=== PATIENT | male | born 1965 | race Hispanic/Latino ===

== ENCOUNTER 2024-01-29 02:13 | Emergency (ER) | payer BC ==
[~2024-01-29] VITALS: Ht 172.7 cm; Wt 106.1 kg
[2024-01-29 02:45] LABS: BASOPHILS # (AUTO) 0.05 K/uL (0.00-0.20); BASOPHILS % (AUTO) 0.6 % (0.0-5.0); EOSINOPHILS # (AUTO) 0.29 K/uL (0.00-0.70); EOSINOPHILS % (AUTO) 3.2 % (0.0-8.0); HEMATOCRIT 44.6 % (42-54); IMMATURE GRANULOCYTE ABSOLUTE 0.03 K/uL (0-1); LYMPHOCYTES # (AUTO) 2.8 K/uL (1.0-4.8); LYMPHOCYTES % (AUTO) 30.5 % (21.0-51.0); MEAN CORPUSCULAR HEMOGLOBIN 28.9 pg (27.0-33.0); MEAN CORPUSCULAR HGB CONC 34.3 g/dL (32.0-36.0); MEAN CORPUSCULAR VOLUME 84.3 fL (79-99); MONOCYTES # (AUTO) 0.7 K/uL (0.1-1.0); MONOCYTES % (AUTO) 7.4 % (3.0-13.0); NEUTROPHILS # (AUTO) 5.2 K/uL (1.8-7.7); PLATELET COUNT (AUTO) 235 K/uL (130-400); RED BLOOD CELL COUNT(AUTO) 5.29 MIL/uL (4.50-6.20); RED CELL DISTRIBUTION WIDTH 13.2 % (11.0-15.5)
[2024-01-29] MEDS: 0.9%NACL 1000ML 1,000 ML IV SCH (02:46)
[2024-01-29] MEDS: ONDANSETRON 4MG INJ IVP ONE (02:46)
[2024-01-29] MEDS: MORPHINE 4 MG SYG IVP ONE ×2 (02:47→07:30)
[2024-01-29 02:52] LABS: APPEARANCE,URINE CLEAR (CLEAR); BILIRUBIN,URINE NEGATIVE (NEGATIVE); COLOR,URINE LIGHT-YELLOW (YELLOW); GLUCOSE, URINE (UA) NEGATIVE (NEGATIVE); KETONES,URINE NEGATIVE (NEGATIVE); LEUKOCYTE ESTERASE ,URINE NEGATIVE Leu/uL (NEGATIVE); NITRATE,URINE NEGATIVE (NEGATIVE); OCCULT BLOOD,URINE LARGE (NEGATIVE); PROTEIN,URINE 70 mg/dL (NEGATIVE); UROBILINOGEN,URINE 0.2 mg/dL (0.2-1.0)
[2024-01-29 02:54] LABS: ADD UA MICROSCOPIC YES; CREATININE 1.1 mg/dL (0.5-1.3); POTASSIUM 3.9 mmol/L (3.5-5.1)
[2024-01-29 02:55] LABS: BACTERIA,URINE FEW /HPF (None Seen); MUCUS,URINE RARE LPF (None Seen); RBC,URINE TNTC /HPF (0-1); SQUAMOUS EPITHELIAL CELL,UR RARE /HPF (0-2)
[2024-01-29 02:59] LABS: ALBUMIN 3.8 g/dL (3.5-5.0); BILIRUBIN,TOTAL 0.4 mg/dL (0.2-1.0); TOTAL PROTEIN, SERUM 8.6 g/dL (6.0-8.3)
[2024-01-29] MEDS: KETOROLAC 30MG VIAL (30MG/ML) IVP ONE (04:23)
[2024-01-29] MEDS: TAMSULOSIN HCL 0.4 MG CAP.ER.24H PO ONE (06:37)
[2024-01-29] MEDS ORDERED: ACET-2079 PO (07:07)
[2024-01-29] MEDS ORDERED: ONDA4TAB10 PO (07:07)
[2024-01-29] MEDS ORDERED: IBUP-2070 PO (07:07)
[2024-01-29] MEDS ORDERED: TAMS-1 PO (07:07)
[2024-01-29 07:37] VITALS: BP 155/95; PULSE 103; RESP 17; O2SAT 97
== END 2024-01-29 07:30 | disposition home or self-care (01) ==
LOC: EDBD 02:13 → EDH 02:13
DX: N13.2 Hydronephrosis with renal and ureteral calculous obstruction (principal); I10 Essential (primary) hypertension; Z98.890 Other specified postprocedural states
CPT/HCPCS: 99284; 74176; 96374; 96375; 80053; 85025; 81001; 36415; 96376; J7030; J2405; J2270 ×2; J1885